=== PATIENT | female | born 1990 | race Caucasian/White ===

== ENCOUNTER 2020-04-29 10:39 | Emergency (ER) | payer BC, OTHER ==
--- NOTE | 2020-04-29 10:59 | EDM.PDOC ---
ED HPI GENERAL MEDICAL PROBLEM - General Chief Complaint: General Stated Complaint: covid retesting Time Seen by Provider: 04/29/20 10:45 Source of Information: Reports: Patient History Limitations: Reports: No Limitations - History of Present Illness INITIAL COMMENTS - FREE TEXT/NARRATIVE: Patient is a 30 year old female who presents today for retesting related to COVID. Patient relates she had routine testing for work yesterday and was notified it was positive. Currently has no symptoms and would like that confirmed. 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 Denies any congestion, sore throat, lightheadedness, loss of taste of smell, cough or shortness of breath. No nausea/vomiting/diarrhea. Associated Symptoms: Reports: No Other Symptoms - Related Data Allergies Allergy/AdvReac Type Severity Reaction Status Date / Time silver nitrate Allergy Pain Verified 04/29/20 11:06 Home Meds: Home Meds FLUoxetine HCl [Fluoxetine HCl] 40 mg PO BID 01/30/16 [History] Levothyroxine Sodium 1 tab PO DAILY 01/30/16 [History] Phentermine HCl 1 tab PO DAILY 01/30/16 [History] metFORMIN [Glucophage XR] 500 mg PO BID 01/30/16 [History] Choriogonadotropin Manuel [Ovidrel] 250 mcg SQ ASDIRECTED 04/29/20 [History] busPIRone HCl [busPIRone] 30 mg PO DAILY 04/29/20 [History] clomiPHENE citrate [Clomiphene Citrate] 50 mg PO DAILY 04/29/20 [History] Past Medical History 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: Psychiatric History: Reports: Depression Endocrine/Metabolic History: Reports: Hypothyroidism, Obesity/BMI 30+ - Past Surgical History Female Surgical History: Reports: Section Social & Family History - Tobacco Use Smoking Status *Q: Unknown Ever Smoked ED ROS GENERAL - Review of Systems Review Of Systems: See Below Constitutional: Reports: No Symptoms HEENT: Reports: No Symptoms Respiratory: Reports: No Symptoms Cardiovascular: Reports: No Symptoms Endocrine: Reports: No Symptoms GI/Abdominal: Reports: No Symptoms : Reports: No Symptoms Musculoskeletal: Reports: No Symptoms Skin: Reports: No Symptoms Neurological: Reports: No Symptoms Psychiatric: Reports: No Symptoms ED EXAM, GENERAL - Physical Exam Exam: See Below Exam Limited By: No Limitations General Appearance: Alert, WD/WN, No Apparent Distress Nose: Normal Inspection, Normal Mucosa, No Blood Throat/Mouth: Normal Inspection, Normal Oropharynx Head: Normocephalic Neck: Normal Inspection, Supple, Non-Tender Respiratory/Chest: No Respiratory Distress, Lungs Clear, Normal Breath Sounds Cardiovascular: Regular Rate, Rhythm Neurological: Alert, Oriented Skin Exam: Warm, Dry Course - Vital Signs Last Recorded V/S: Last Vital Signs Temp 97.4 F 04/29/20 10:39 Pulse 74 04/29/20 10:39 Resp 14 04/29/20 10:39 BP 114/65 04/29/20 10:39 Pulse Ox 96 04/29/20 10:39 - Orders/Labs/Meds Labs: Laboratory Tests 04/29/20 Range/Units 10:45 COVID-19 (VIRA) Negative (NEGATIVE) - Re-Assessments/Exams Free Text/Narrative Re-Assessment/Exam: 04/29/20 11:13 COVID testing is negative here. Departure - Departure Time of Disposition: 11:14 Disposition: Home, Self-Care 01 Condition: Good Clinical Impression: COVID-19 ruled out - Discharge Information *PRESCRIPTION DRUG MONITORING PROGRAM REVIEWED*: No *COPY OF PRESCRIPTION DRUG MONITORING REPORT IN PATIENT TAVO: No Forms: ED Department Discharge Additional Instructions: 1. COVID testing is negative today. Would discuss with employer to determine if need to quarantine and be retested to ensure 2 negative tests before returning to patient care. 2. Follow up if develop any symptoms, ie. cough, shortness of breath, fever or congestion Sepsis Event Note (ED) - Focused Exam Vital Signs: Vital Signs Temp Pulse Resp BP Pulse Ox 04/29/20 10:39 97.4 F 74 14 114/65 96
[2020-04-29 11:04] VITALS: BP 114/65; PULSE 74
== END 2020-04-29 11:30 | disposition home or self-care (01) ==
LOC: VM.LAB 10:39 → VM.ED 10:39 → VM.LAB 10:39 → VM.ED 11:30 → VM.LAB 11:30 → EDSTATUS 15:10
DX: Z20.828 Contact with and (suspected) exposure to other viral communicable diseases (principal); F32.9 Major depressive disorder, single episode, unspecified; E03.9 Hypothyroidism, unspecified; E66.9 Obesity, unspecified; Z91.048 Other nonmedicinal substance allergy status; Z79.899 Other long term (current) drug therapy; Z79.84 Long term (current) use of oral hypoglycemic drugs; Z98.890 Other specified postprocedural states
CPT/HCPCS: 99283; 99283-GF; U0002

== ENCOUNTER 2021-08-30 04:41 | Emergency (ER) | payer BC ==
[2021-08-30] MEDS ORDERED: EPINEPHrine 1 MG/1 ML Amp ONE (05:08)
[2021-08-30] MEDS ORDERED: Sodium Bicarbonate 8.4% 50 MEQ/50 ML Syringe ONE (05:08)
[2021-08-30] MEDS ORDERED: Atropine 0.1 MG/ML 10 ML Syringe ONE (05:09)
[2021-08-30] MEDS ORDERED: EPINEPHrine 1:10,000 1 MG/10 ML Syringe ONE (05:12)
--- NOTE | 2021-08-30 05:34 | EDM.PDOC ---
ED HPI GENERAL MEDICAL PROBLEM - General Stated Complaint: cardiac arrest Time Seen by Provider: 08/30/21 04:41 Source of Information: Reports: EMS, Family ( they are currently . ) History Limitations: Reports: Other (Pt in full cardiac arrest upon arrival. ) - History of Present Illness INITIAL COMMENTS - FREE TEXT/NARRATIVE: Patient is brought to the emergency department today from home with concerns of cardiac arrest. HPI is primarily obtained from the EMS and the . 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 She has been well over the past couple of days without complaints. She received her third Covid vaccine about a week ago. Tonight at 3:30 according to the mother she sent a picture to her mother of her right leg purple and painful and was concerned for a clot. Then shortly before 4:00 she called her who they are currently he was out at the "farm". She told him that her right leg was "purple" painful swollen cold and that there was something wrong. She called 911 and informed them that she was short of breath and went unresponsive on the phone. Shortly there after Police arrived on the scene. She was unresponsive apneic CPR initiated AED applied and no shock advised. Per EMS report the patient did regain some signs of life by initial CPR although this quickly dissolved. EMS arrived she was in a galina PEA in the 20s. Epi x5 total pupils were fixed and dilated on EMS arrival. She was intubated and had no lung sounds on the right, good lung sounds on the left. I/O was inserted. Persistent EtCo2 of < 10. ACLS was then continued enroute to the ED. 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 JUVE CPR, BVM ventilation per ETtube. NO signs of life. General Appearance: Other (Unresponsive cold cyanotic) Eye Exam: Bilateral Eye: Other (Fixed dilated at 8mm none responsive. ) Ears: Normal External Exam Nose: Normal Inspection Head: Normocephalic Respiratory Chest: Other (Assisted ventilation, Lung sounds on the left, none on the right. ) Cardiovascular: CPR In Progress (With Juve). No: Pulse with Compression 0: Femoral (R), Femoral (L) Extremities: Other (Cool pale extremities. RLE is much much cooler and very notable more cyanotic. ) Course - Orders/Labs/Meds Meds: Medications Discontinued Medications Generic Name Dose Route Start Last Admin Trade Name Freq PRN Reason Stop Dose Admin Atropine Sulfate Confirm 08/30/21 05:09 Atropine 0.1 Mg/Ml 10 Ml Syringe Administered 08/30/21 05:10 Dose 1 mg .ROUTE .STK-MED ONE Epinephrine HCl Confirm 08/30/21 05:08 Epinephrine 1 Mg/1 Ml Amp Administered 08/30/21 05:09 Dose 1 mg .ROUTE .STK-MED ONE Epinephrine HCl Confirm 08/30/21 05:12 Epinephrine 1:10,000 1 Mg/10 Ml Syringe Administered 08/30/21 05:13 Dose 1 mg .ROUTE .STK-MED ONE Sodium Bicarbonate Confirm 08/30/21 05:08 Sodium Bicarbonate 8.4% 50 Meq/50 Ml Syringe Administered 08/30/21 05:09 Dose 50 meq .ROUTE .STK-MED ONE - Re-Assessments/Exams Free Text/Narrative Re-Assessment/Exam: Immediately upon arrival. ACLS protocol followed. Sodium Bicard due to prolonged down time. Atropine for slow PEA Right sided lateral chest needle thoracostomy with no woosh of air or change in lung sounds. There is no signs of life upon arrival. PEA rate in the 20s and EtCo2 has been persistently <10 during entire EMS transport and is 4 upon arrival. ACLS algorithm followed. With the pulse check by bedside POCUS echo subxiphoid identified a none contractile ventricular standstill cardiac image on the US. No pulse by palpation. The patient had an approximate 1 hour down time at that moment. She was in an agonal wide PEA rhythm with ventricular standstill on the ultrasound and no palpable pulse. She received a total of 5 Epi by EMS and 2 by the ED staff. Plus Sodium bicarb and atropine upon arrival through an I/O. Her EtCo2 is persistently <10 and 4 upon arrival and stayed 4 while in the ED. Time of 5:01. This is most likely due to a large PE from a DVT, although this is my opinion at this time and I am not a forensic pathologist. [employer] Contacted Comfort given to the family. 08/30/21 06:00 Departure - Departure Time of Disposition: 05:01 Disposition: 20 Clinical Impression: Cardiac arrest with pulseless electrical activity - Discharge Information
== END 2021-08-30 12:15 | disposition expired ==
LOC: VM.ED 04:41
DX: I46.9 Cardiac arrest, cause unspecified (principal); R94.31 Abnormal electrocardiogram [ECG] [EKG]; E03.9 Hypothyroidism, unspecified; E66.9 Obesity, unspecified; Z68.30 Body mass index [BMI] 30.0-30.9, adult; Z91.048 Other nonmedicinal substance allergy status; Z20.822 Contact with and (suspected) exposure to COVID-19
CPT/HCPCS: 87635; 92950; 99285; J0171; J0461; U0002